=== PATIENT | male | born 1945 | race Caucasian/White ===

== ENCOUNTER 2018-10-01 15:53 | Observation (INO) | payer BC, MEDICAID ==
--- NOTE | 2018-10-01 16:11 | Emergency Department Record ---
History of Present Illness - General Chief complaint: Lower Extremity Pain Stated complaint: L LEG SORE BY ANKLE FROM FALL Time Seen by Provider: 10/01/18 16:05 Source: Patient Mode of Arrival: Ambulatory Limitations: No limitations - History of Present Illness Initial comments: The patient is here due to injuring his L lower leg during a fall 2 weeks ago. Today he noticed he had what appears to be an infection over the area on his L lower leg. The patient denies any fever, chills, or vomiting. He is able to walk with minimal difficulty. MD Complaint: Extremity pain Onset/Timin -: Week(s) Location: Left, Lower Leg History of Same: No Radiation: Proximal, Distal Severity scale (1-10): 6 Quality: Aching Consistency: Constant Improves with: Nothing Worsens with: Nothing Associated Symptoms: Denies other symptoms - Related Data Allergies Allergy/AdvReac Type Severity Reaction Status Date / Time Penicillins Allergy SWELLING Verified 10/01/18 16:03 (GENERAL) Travel Screening - Travel/Exposure Within Last 30 Days Have you traveled within the last 30 days?: No Review of Systems Constitutional: Denies: Chills, Fever Eyes: Denies: Eye discharge ENT: Denies: Congestion Respiratory: Denies: Cough Cardiovascular: Denies: Arrhythmia, Chest pain Endocrine: Denies: Fatigue Gastrointestinal: Denies: Abdominal pain Genitourinary: Denies: Dysuria Musculoskeletal: Denies: Back pain Skin: Denies: Bruising Neurological: Denies: Abnormal gait, Confusion Past Medical History - SOCIAL HISTORY Smoking Status: Never smoker Alcohol Use: None Drug Use: None - RESPIRATORY Hx Respiratory Disorders: No - CARDIOVASCULAR Hx Cardio Disorders: Yes Hx Hypertension: Yes - NEURO Hx Neuro Disorders: Yes Comment:: parkinsons - GI Hx GI Disorders: No - Hx Genitourinary Disorders: No - ENDOCRINE Hx Endocrine Disorders: No - MUSCULOSKELETAL Hx Musculoskeletal Disorders: No - PSYCH Hx Psych Problems: Yes Hx Anxiety: Yes Hx Depression: Yes - HEMATOLOGY/ONCOLOGY Hx Hematology/Oncology Disorders: No Family Medical History Any Significant Family History?: No Physical Exam - General General Appearance: Alert, Oriented x3, Cooperative, No acute distress - Head Head exam: Atraumatic, Normocephalic - Eye Eye exam: Normal appearance, PERRL - ENT Throat exam: Normal inspection. negative: Tonsillar erythema, Tonsillar exudate - Neck Neck exam: Normal inspection, Full ROM. negative: Tenderness - Respiratory Respiratory exam: Normal lung sounds bilaterally. negative: Respiratory distress - Cardiovascular Cardiovascular Exam: Regular rate, Normal rhythm, Normal heart sounds - GI/Abdominal GI/Abdominal exam: Soft, Normal bowel sounds. negative: Tenderness - Extremities Extremities exam: Tenderness. negative: Normal inspection (There is an 8x8 cm area of erythema and warmth and tenderness to the anterior L lower leg above the ankle. There is mild lympangitis streaking proximally from the area.), Full ROM Image of Full Body: 1 - Area of erythema and warmth and tenderness. - Back Back exam: Reports: Normal inspection - Neurological Neurological exam: Alert, Normal gait. negative: Abnormal gait, Motor sensory deficit - Skin Skin exam: Rash Course Vital Signs 10/01/18 15:57 Temperature 97.3 F L Pulse Rate 108 H Respiratory 20 Rate Blood Pressure 180/77 Pulse Ox 97 - Reevaluation(s) Reevaluation #1: Procedure note: the L lower leg wound was cleansed with betadine and opened up with a # 11 blade. A very minimal amount of purulence was expressed and cultured. 10/01/18 17:05 Reevaluation #2: I did discuss the issues with the patient and did recommend admission due to the leg infection and the patient agreed. I then did discuss the case with Joyce (EMERGENCY DEPARTMENT DIRECTOR) and she does accept the admission for Dr. Roy. 10/01/18 17:06 Medical Decision Making - Data Complexity MDM Data: Labs Ordered and/or Reviewed, X-Ray Ordered and/or Reviewed - Lab Data Result diagrams: 10/01/18 16:20 10/01/18 16:20 - Radiology Data Radiology results: Report reviewed (L lower leg: Neg for osteo or air. Soft tissue swelling consistent with cellulitis.) Disposition Disposition: Admit Clinical Impression: Cellulitis Qualifiers: Site of cellulitis: unspecified site Qualified Code(s): L03.90 - Cellulitis, unspecified Disposition: Still a Patient at [facility] Decision to Admit: Admit from ER Decision to Admit Date: 10/01/18 Decision to Admit Time: 17:07 Accepting Physician: Kirill Time Discussed w/Accepting Physician: 17:07 Condition: (2) Stable Forms: Patient Portal Access Time of Disposition: 17:07 Quality - Quality Measures Quality Measures: N/A - Blood Pressure Screening View Details: Yes Does Patient Have Any of the Following: Active Dx of HTN Blood Pressure Classification: Hypertensive Reading Systolic Measurement: 180 Diastolic Measurement: 77 Screening for High Blood Pressure: Patient Exclusion, Hx of HTN [[id number]]
[2018-10-01] MEDS ORDERED: CLINDAMYCIN 600MG/50ML PREMIX 600 MG/50 ML BAG IVPB ONE (16:15)
[2018-10-01 16:26] LABS: HEMOGLOBIN 8.9 gm/dl (14.0-18.0); MEAN CELL VOLUME 107.3 fl (81-97); MEAN CORPUSCULAR HGB CONC 31.8 g/dl (32-36); MEAN PLATELET VOLUME 12.7 fl (7.4-10.4); PLATELET COUNT 126 K/uL (130-400); RED BLOOD COUNT 2.61 M/uL (4.40-5.70); RED CELL DISTRIBUTION WIDTH 15.4 % (11.5-14.5); WHITE BLOOD COUNT W/O DIFF 6.4 K/uL (4.2-12.2)
[2018-10-01 16:36] LABS: HYPOCHROMIA 1+; PLATELET ESTIMATE NORMAL (NORMAL)
[2018-10-01 16:40] LABS: BLOOD UREA NITROGEN 27 mg/dL (8-23); CREATININE 0.8 mg/dL (0.7-1.2); EST GLOMERULAR FILTRATION RATE > 60 mL/min; TOTAL PROTEIN 7.8 g/dL (6.6-8.7)
[2018-10-01 16:42] LABS: GLUCOSE,RANDOM 119 mg/dL (74-109)
[2018-10-01 16:45] LABS: ALBUMIN 3.9 g/dL (4.0-5.0); ALKALINE PHOSPHATASE 68 U/L (55-149); ALT/SGPT 10 U/L (<41); AST/SGOT 10 U/L (10.0-50.0); C-REACTIVE PROTEIN 5.41 mg/dL (<0.5)
[2018-10-01] MEDS ORDERED: ACETAMINOPHEN 325 MG TAB PO PRN (18:44)
[2018-10-01] MEDS: CLINDAMYCIN 600MG/50ML PREMIX 600 MG/50 ML BAG IVPB SCH (20:05)
[2018-10-01] MEDS: CARBIDOPA/LEVODOPA 25MG/100MG TABLET PO SCH (21:57)
[2018-10-02] MEDS: CLINDAMYCIN 600MG/50ML PREMIX 600 MG/50 ML BAG IVPB SCH ×4 (03:01→18:22)
[2018-10-02 06:49] LABS: HEMATOCRIT 25.9 % (42.0-52.0); MEAN CELL VOLUME 108.4 fl (81-97); MEAN CORPUSCULAR HGB CONC 30.9 g/dl (32-36); MEAN PLATELET VOLUME 12.3 fl (7.4-10.4); PLATELET COUNT 99 K/uL (130-400); RED BLOOD COUNT 2.39 M/uL (4.40-5.70); RED CELL DISTRIBUTION WIDTH 15.4 % (11.5-14.5); WHITE BLOOD COUNT W/O DIFF 3.5 K/uL (4.2-12.2)
[2018-10-02 06:58] LABS: MEAN CORPUSCULAR HEMOGLOBIN 33.4 pg (27-33)
[2018-10-02 07:02] LABS: ALBUMIN 3.4 g/dL (4.0-5.0); ALKALINE PHOSPHATASE 55 U/L (55-149); ALT/SGPT < 5 U/L (<41); AST/SGOT 9 U/L (10.0-50.0); BLOOD UREA NITROGEN 19 mg/dL (8-23); CREATININE 0.6 mg/dL (0.7-1.2); EST GLOMERULAR FILTRATION RATE > 60 mL/min; GLUCOSE,RANDOM 92 mg/dL (74-109); TOTAL PROTEIN 6.8 g/dL (6.6-8.7)
[2018-10-02 07:36] LABS: ANISOCYTOSIS 1+; PLATELET ESTIMATE NORMAL (NORMAL)
[2018-10-02] MEDS: CITALOPRAM 20 MG TABLET PO SCH (09:28)
[2018-10-02] MEDS: CARBIDOPA/LEVODOPA 25MG/100MG TABLET PO SCH ×3 (09:28→21:56)
--- NOTE | 2018-10-02 09:29 | History & Physical ---
History of Present Illness - Date of Service Date of Service for History & Physical: 10/02/18 - History of Present Illness Admitting Diagnosis: 1. Left Lower Leg Cellulitis. History of Present Illness: 73 year old male patient presented to ED for worsening of an injury on his left gil. Patient states he slipped on the ice 4 days prior, and noted worsening redness and swelling of the area. Patient denied any fever, chills, vomiting, or shortness of breath. Patient denied noting any drainage from the area, denied any other injuries from the fall. Area on left lower leg opened in ED, minimal purulent drainage noted from the wound. Culture obtained from drainage. Patient is a poor historian but reports his past medical history to include Parkinson's, depression, and anemia. PCP: Ramos ED Course: VS: Temp 97.3F, HR 108, RR 20, BP 180/77, Pulse ox 97% Cultured wound on LLE Clinadmycin 600mg IVP q8h X-ray LLE: normal bone mineralization, no acute fracture or dislocation, mild soft tissue swelling of distal leg consistent with cellulitis WBC 6.4 with 15 bands, CRP 5 10/02/18: Patient A&O x 4, resting comfortably in bed. Patient has remained afebrile, no change in WBC since yesterday. Continued erythema with streaking up left leg noted around wound, no drainage, improvement in swelling at this time. Will continue with Clindamycin 600mg q8h at this time, pending wound culture results. Travel Screening - Travel/Exposure Within Last 30 Days Have you traveled within the last 30 days?: No - Travel/Exposure Within Last Year Have you traveled outside the [place] in the last year?: No - Additonal Travel Details Have you been exposed to anyone with a communicable illness?: No - Travel Symptoms Symptom Screening: None Review of Systems Reviewed: No additional complaints except as noted below Constitutional: Denies: Chills, Fever Eyes: Denies: Eye discharge ENT: Denies: Congestion Respiratory: Denies: Cough Cardiovascular: Denies: Arrhythmia, Chest pain Endocrine: Denies: Fatigue Gastrointestinal: Denies: Abdominal pain Genitourinary: Denies: Dysuria Musculoskeletal: Denies: Back pain Skin: Reports: Change in color (wound, redness, and swelling of LLE). Denies: Bruising Neurological: Denies: Abnormal gait, Confusion Past Medical History - SOCIAL HISTORY Smoking Status: Never smoker Alcohol Use: None Drug Use: None - RESPIRATORY Hx Respiratory Disorders: No - CARDIOVASCULAR Hx Cardio Disorders: Yes Hx Hypertension: Yes (STATES WAS TAKEN OFF BP MED BY PCP SOME TIME AGO) - NEURO Hx Neuro Disorders: Yes Hx Parkinson's Disease: Yes (TREMORS, DIFFICULTY READING) - GI Hx GI Disorders: No - Hx Genitourinary Disorders: No - ENDOCRINE Hx Endocrine Disorders: No Hx Diabetes: No Hx Thyroid Disease: No - MUSCULOSKELETAL Hx Musculoskeletal Disorders: No - PSYCH Hx Psych Problems: Yes Hx Anxiety: Yes Hx Depression: Yes - HEMATOLOGY/ONCOLOGY Hx Hematology/Oncology Disorders: No Family Medical History Any Significant Family History?: No H&P Meds/Allergies - Allergies Allergies: Allergies Allergy/AdvReac Type Severity Reaction Status Date / Time Penicillins Allergy SWELLING Verified 10/01/18 16:03 (GENERAL) - Home Medications Home Medications Medication Instructions Recorded Confirmed Last Taken Carbidopa/Levodopa [Sinemet 25-100 1 each PO TID 10/01/18 10/01/18 09/30/18 21: 00 mg Tablet] 25-100 mg Citalopram Hydrobromide [Celexa] 20 mg PO DAILY 10/01/18 10/01/18 09/30/18 09:00 20 mg - Active Medications Active Medications: Current Medications Acetaminophen (Tylenol 325mg) 650 mg PO Q6H PRN PRN Reason: PAIN - MILD(1-4)/FEVER Carbidopa/Levodopa (Sinemet) 1 each PO TID [facility] Last Admin: 10/01/18 21:57 Dose: 1 each Citalopram Hydrobromide (Celexa) 20 mg PO DAILY [facility] Clindamycin Phosphate (Cleocin 600 [id number]) 600 mg in 50 mls @ 100 mls/ hr IVPB Q8H [facility] Last Infusion: 10/02/18 03:35 Dose: Infused Physical Exam - Vital Signs Vital Signs: Vital Signs - Last 24 Hrs Temp Pulse Pulse Resp BP BP Pulse Ox 10/02/18 08:32 84 20 10/01/18 22:00 97.2 F L 88 16 98/62 97 10/01/18 18:40 98.0 F 91 H 18 136/76 93 L 10/01/18 18:29 97 H 20 128/72 97 10/01/18 15:57 97.3 F L 108 H 20 180/77 97 - General General Appearance: Alert, Oriented x3, Cooperative, No acute distress Limitations: No limitations - Head Head exam: Atraumatic, Normocephalic - Eye Eye exam: Normal appearance, PERRL - ENT ENT exam: Mucous membranes moist Ear exam: Normal external inspection Throat exam: negative: Tonsillar erythema, Tonsillar exudate - Neck Neck exam: Normal inspection, Full ROM. negative: Tenderness - Respiratory Respiratory exam: Normal lung sounds bilaterally. negative: Respiratory distress - Cardiovascular Cardiovascular Exam: Regular rate, Normal rhythm, Normal heart sounds Peripheral Pulses: 2+: Radial (R), Radial (L), Dorsalis Pedis (R), Dorsalis Pedis (L) - GI/Abdominal GI/Abdominal exam: Soft, Normal bowel sounds. negative: Tenderness - Extremities Extremities exam: Tenderness. negative: Normal inspection (There is an 8x8 cm area of erythema, warmth and tenderness to the anterior L lower leg above the ankle. There is mild lympangitis streaking proximally from the area.), Full ROM - Back Back exam: Reports: Normal inspection - Neurological Neurological exam: Alert, Normal gait, Oriented X3. negative: Abnormal gait, Motor sensory deficit - Psychiatric Psychiatric exam: Flat affect, Normal mood - Skin Skin exam: Normal color Results - Labs Result Diagrams: 10/02/18 05:45 10/02/18 05:45 Labs Last 24 Hours: Laboratory Results - last 24 hr 10/01/18 10/01/18 10/02/18 16:20 16:20 05:45 WBC 6.4 3.5 L RBC 2.61 L 2.39 L Hgb 8.9 L 8.0 L Hct 28.0 L 25.9 L MCV 107.3 H 108.4 H MCH 34.0 H 33.4 H MCHC 31.8 L 30.9 L RDW 15.4 H 15.4 H Plt Count 126 L 99 L MPV 12.7 H 12.3 H Neutrophils % 46.0 L 4.0 L Band Neutrophils % 15.0 H 2.0 Eosinophils % Not Reportable Not Reportable Basophils % Not Reportable Not Reportable Lymphocytes 22.0 60.0 H Monocytes 14.0 H 34.0 H Metamyelocytes 3.0 Platelet Estimate Normal Normal Hypochromasia 1+ Anisocytosis 1+ Macrocytosis 1+ Sodium 136 Potassium 4.0 Chloride 96 L Carbon Dioxide 23.0 Anion Gap 17.0 H BUN 27 H Creatinine 0.8 Estimated GFR > 60 Random Glucose 119 H Calcium 8.8 Total Bilirubin 0.40 AST 10 ALT 10 Alkaline Phosphatase 68 C-Reactive Protein 5.41 H Total Protein 7.8 Albumin 3.9 L Globulin 3.9 Albumin/Globulin Ratio 1.0 L 10/02/18 05:45 WBC RBC Hgb Hct MCV MCH MCHC RDW Plt Count MPV Neutrophils % Band Neutrophils % Eosinophils % Basophils % Lymphocytes Monocytes Metamyelocytes Platelet Estimate Hypochromasia Anisocytosis Macrocytosis Sodium 138 Potassium 3.6 Chloride 101 Carbon Dioxide 24.0 Anion Gap 13.0 BUN 19 Creatinine 0.6 L Estimated GFR > 60 Random Glucose 92 Calcium 8.1 L Total Bilirubin 0.40 AST 9 L ALT < 5 Alkaline Phosphatase 55 C-Reactive Protein Total Protein 6.8 Albumin 3.4 L Globulin 3.4 Albumin/Globulin Ratio 1.0 L VTE H&P Assessment - Risk for VTE Risk for VTE: Yes Risk Level: Moderate Risk Assessment Date: 10/02/18 Risk Assessment Time: 11:12 VTE Orders Placed or Will Be Placed: No VTE Reason for No Prophylaxis: Contraindicated (decreased platelets) Plan - Inpatient Certification Inpatient Certification: Admit to inpatient care: Based on my medical assessment, after consideration of patient's risk factors (age, co-morbidities and patient presenting symptoms and acuity), I expect that this patient will remain in the hospital greater than or equal to two midnights and that the services needed warrant inpatient care because: Patient Risk Factors: [age, hospitalization, cellulitis, anemia] Estimated length of stay: The patient may reasonably be expected to be discharged or transferred to a hospital within 96 hours after admission to [facility]. Services needed: [IV antibiotics, serial lab monitoring] Post hospital care (if known): [] I certify that my determination is in accordance with my understanding of Medicare requirements for reasonable and necessary inpatient services. 10/02/18 11:12 - Detailed Diagnosis and Plan (1) Cellulitis Current Visit: Yes Status: Acute Qualifiers: Site of cellulitis: unspecified site Qualified Code(s): L03.90 - Cellulitis , unspecified Base Code: L03.90 - CELLULITIS, UNSPECIFIED Comment: 10/02/18: - 8x8cm area of erythema with proximal streaking up LLE noted - Wound opened in ED with minimal purulent drainage, wound culture obtained - WBC 6.4, afebrile - X-ray LLE: negative for acute fracture, normal bone mineralization, soft tissue swelling noted suggestive of cellulitis - Clindamycin 600mg IVPB q8h (2) Anemia Current Visit: Yes Status: Acute Base Code: D64.9 - ANEMIA, UNSPECIFIED Comment: 10/02/18: - CBC grossly abnormal in ER, patient reports history of anemia with no treatment, poor historian - Hgb 8.9, MCV 107.3, Plt 126 - Repeat CBC today indicates Hgb 8.0, MCV 108.4, Plt 99 - Will check B12, folate, and TSH levels to look for additional cause of macrocytic anemia - Recheck CBC tomorrow (3) DVT prophylaxis Current Visit: Yes Status: Acute Base Code: [id number] - Comment: 10/02/18: - Moderate risk due to age, hospitalization, and illness - Lovenox contraindicated at this time due to thrombocytopenia - Encouraged patient to ambulate frequently within the room (4) DNR (do not resuscitate) Current Visit: Yes Status: Acute Base Code: Z66 - DO NOT RESUSCITATE Comment: 10/02/18: - Patient is a DNR
[2018-10-03] MEDS: CLINDAMYCIN 600MG/50ML PREMIX 600 MG/50 ML BAG IVPB SCH ×3 (02:51→18:27)
[2018-10-03 07:02] LABS: HEMATOCRIT 27.2 % (42.0-52.0); HEMOGLOBIN 8.4 gm/dl (14.0-18.0); MEAN CELL VOLUME 108.8 fl (81-97); MEAN CORPUSCULAR HEMOGLOBIN 33.6 pg (27-33); MEAN CORPUSCULAR HGB CONC 30.9 g/dl (32-36); MEAN PLATELET VOLUME 12.3 fl (7.4-10.4); PLATELET COUNT 106 K/uL (130-400); RED CELL DISTRIBUTION WIDTH 15.1 % (11.5-14.5)
--- NOTE | 2018-10-03 07:17 | RADIOLOGY REPORT ---
EXAM: LEFT LOWER LEG HISTORY: PAIN AND REDNESS TO DISTAL ANTERIOR ASPECT OF THE LEFT LOWER LEG WITH OPEN WOUND SINCE FALL TWO WEEKS AGO. TECHNIQUE: AP and lateral views of the left lower leg were obtained. Comparison: None. Encounter: Initial. FINDINGS: There is normal bone mineralization. No acute fracture nor dislocation is seen. There are mild osteoarthritic changes of the visualized portions of the knee. The ankle mortise joint appears intact. There is diffuse arterial calcification. There is soft tissue swelling throughout the mid and distal portions of the lower leg most pronounced anteriorly and distally. No soft tissue emphysema nor foreign body. No focal osteopenia or periosteal reaction. There is a small plantar calcaneal spur. IMPRESSION: 1. NO ACUTE BONE NOR JOINT ABNORMALITY. 2. SOFT TISSUE SWELLING IN THE MID TO DISTAL LOWER LEG CONSISTENT WITH CELLULITIS. 3. MILD ARTHRITIC CHANGES OF THE KNEE. JOB NUMBER: [id number] [facility]
[2018-10-03 07:18] LABS: BLOOD UREA NITROGEN 17 mg/dL (8-23); CREATININE 0.5 mg/dL (0.7-1.2); EST GLOMERULAR FILTRATION RATE > 60 mL/min; GLUCOSE,RANDOM 101 mg/dL (74-109)
[2018-10-03 07:30] LABS: ANISOCYTOSIS 1+; PLATELET ESTIMATE NORMAL (NORMAL)
[2018-10-03 07:44] LABS: THYROID STIMULATING HORMONE 2.01 uIU/mL (0.270-4.20)
[2018-10-03] MEDS: CARBIDOPA/LEVODOPA 25MG/100MG TABLET PO SCH ×3 (09:56→21:49)
[2018-10-03] MEDS: CITALOPRAM 20 MG TABLET PO SCH (09:56)
--- NOTE | 2018-10-03 10:23 | Physician Progress Note ---
Subjective - Date Date of Physician Progress Note: 10/03/18 - Subjective Location: Left, Lower extremity Radiation: Non-Radiating Objective - Vital Signs Vital Signs: Vital Signs - Last 24 Hrs Temp Pulse Resp BP Pulse Ox 10/03/18 08:08 76 20 10/03/18 08:00 97.0 F L 72 14 113/63 96 10/02/18 21:00 78 17 10/02/18 20:00 97.4 F L 78 17 110/82 99 10/02/18 16:00 98.4 F 76 16 102/54 95 10/02/18 12:00 98.4 F 78 16 98/52 - General General Appearance: Alert, Oriented x3, Cooperative, No acute distress Limitations: No limitations - Head Head exam: Atraumatic, Normocephalic - Eye Eye exam: Normal appearance, PERRL - ENT ENT exam: Mucous membranes moist Ear exam: Normal external inspection Throat exam: negative: Tonsillar erythema, Tonsillar exudate - Neck Neck exam: Normal inspection, Full ROM. negative: Tenderness - Respiratory Respiratory exam: Normal lung sounds bilaterally. negative: Respiratory distress - Cardiovascular Cardiovascular Exam: Regular rate, Normal rhythm, Normal heart sounds Peripheral Pulses: 2+: Radial (R), Radial (L), Dorsalis Pedis (R), Dorsalis Pedis (L) - GI/Abdominal GI/Abdominal exam: Soft, Normal bowel sounds. negative: Tenderness - Rectal Rectal exam: Deferred - exam: Deferred - Extremities Extremities exam: Tenderness. negative: Normal inspection (There is an 8x8 cm area of erythema, warmth and tenderness to the anterior L lower leg above the ankle. Improved lympangitis streaking proximally from the area.), Full ROM - Back Back exam: Reports: Normal inspection - Neurological Neurological exam: Alert, Normal gait, Oriented X3. negative: Abnormal gait, Motor sensory deficit - Psychiatric Psychiatric exam: Flat affect, Normal mood - Skin Skin exam: Normal color Assessment and Plan - Assessment and Plan (1) Cellulitis Current Visit: Yes Status: Acute Qualifiers: Site of cellulitis: unspecified site Qualified Code(s): L03.90 - Cellulitis , unspecified Base Code: L03.90 - CELLULITIS, UNSPECIFIED Comment: 10/03/18: - 8x8cm area of erythema with proximal streaking up LLE noted, improved from yesterday - Wound opened in ED with minimal purulent drainage, wound culture obtained. Continued minimal purulent drainage - WBC 3.0, has remained afebrile - X-ray LLE: negative for acute fracture, normal bone mineralization, soft tissue swelling noted suggestive of cellulitis - Clindamycin 600mg IVPB q8h - Mupirocin ointment to wound BID, with BID dressing changes - Preliminary wound culture indicates gram positive cocci in clusters (2) Anemia Current Visit: Yes Status: Acute Base Code: D64.9 - ANEMIA, UNSPECIFIED Comment: 10/03/18: - CBC grossly abnormal since admission, patient reports history of anemia with no treatment, poor historian - Hgb 8.9, MCV 107.3, Plt 126 on admission - Repeat CBC today indicates Hgb 8.4, MCV 108.8, Plt 126 - B12, folate, and TSH levels all within normal - Likely chronic macrocytic anemia, advised patient to follow-up with PCP for careful monitoring. (3) DVT prophylaxis Current Visit: Yes Status: Acute Base Code: [id number] - Comment: 10/03/18: - Moderate risk due to age, hospitalization, and illness - Lovenox contraindicated at this time due to thrombocytopenia - Encouraged patient to ambulate frequently within the room (4) DNR (do not resuscitate) Current Visit: Yes Status: Acute Base Code: Z66 - DO NOT RESUSCITATE Comment: 10/03/18: - Patient is a DNR Results - Labs Result Diagrams: 10/03/18 06:30 10/03/18 06:30 Labs Last 24 Hours: Laboratory Results - last 24 hr 10/03/18 10/03/18 10/03/18 06:30 06:30 06:30 WBC 3.0 L RBC 2.50 L Hgb 8.4 L Hct 27.2 L MCV 108.8 H MCH 33.6 H MCHC 30.9 L RDW 15.1 H Plt Count 106 L MPV 12.3 H Neutrophils % 18.0 L Eosinophils % Not Reportable Basophils % Not Reportable Lymphocytes 40.0 Monocytes 42.0 H Platelet Estimate Normal Anisocytosis 1+ Macrocytosis 1+ Sodium 136 Potassium 3.9 Chloride 101 Carbon Dioxide 24.0 Anion Gap 11.0 BUN 17 Creatinine 0.5 L Estimated GFR > 60 Random Glucose 101 Calcium 8.3 L Vitamin B12 384.2 Folate 6.01 TSH 2.01 DVT/PE Assessment - Risk for VTE Risk for VTE: No Risk Level: Moderate Risk Assessment Date: 10/02/18 Risk Assessment Time: 11:12 VTE Orders Placed or Will Be Placed: No VTE Reason for No Prophylaxis: Contraindicated (decreased platelets) - Active Medicaitons Current Medications: Current Medications Acetaminophen (Tylenol 325mg) 650 mg PO Q6H PRN PRN Reason: PAIN - MILD(1-4)/FEVER Carbidopa/Levodopa (Sinemet) 1 each PO TID [facility] Last Admin: 10/03/18 09:56 Dose: 1 each Citalopram Hydrobromide (Celexa) 20 mg PO DAILY [facility] [place] Last Admin: 10/03/18 09:56 Dose: 20 mg Clindamycin Phosphate (Cleocin 600 [id number]) 600 mg in 50 mls @ 100 mls/ hr IVPB Q8H [facility] [place] Last Admin: 10/03/18 09:56 Dose: 100 mls/hr Mupirocin (Bactroban) 22 gm TOP BID [facility] [place] Propranolol HCl (Inderal) 20 mg PO QHS [facility] AMI Plan - Labs Result Diagrams: 10/03/18 06:30 10/03/18 06:30
[2018-10-03] MEDS: MUPIROCIN OINT 22 GM TUBE TOP SCH ×3 (12:01→21:53)
[2018-10-03] MEDS ORDERED: PROPRANOLOL HCL 10 MG TABLET PO SCH (22:00)
[2018-10-04] MEDS: CLINDAMYCIN 600MG/50ML PREMIX 600 MG/50 ML BAG IVPB SCH (02:27)
[2018-10-04 06:40] LABS: HEMATOCRIT 26.3 % (42.0-52.0); HEMOGLOBIN 8.2 gm/dl (14.0-18.0); MEAN CELL VOLUME 108.7 fl (81-97); MEAN CORPUSCULAR HGB CONC 31.2 g/dl (32-36); MEAN PLATELET VOLUME 11.6 fl (7.4-10.4); PLATELET COUNT 107 K/uL (130-400); RED BLOOD COUNT 2.42 M/uL (4.40-5.70); RED CELL DISTRIBUTION WIDTH 15.2 % (11.5-14.5); WHITE BLOOD COUNT W/O DIFF 3.1 K/uL (4.2-12.2)
[2018-10-04 06:47] LABS: MEAN CORPUSCULAR HEMOGLOBIN 33.8 pg (27-33)
[2018-10-04 06:55] LABS: BLOOD UREA NITROGEN 14 mg/dL (8-23); CREATININE 0.5 mg/dL (0.7-1.2); EST GLOMERULAR FILTRATION RATE > 60 mL/min; GLUCOSE,RANDOM 94 mg/dL (74-109)
[2018-10-04 07:06] LABS: ANISOCYTOSIS 1+; PLATELET ESTIMATE DECREASED (NORMAL)
--- NOTE | 2018-10-04 10:12 | Discharge Summary ---
Providers Discharge Summary Date: 10/04/18 Date of admission: 10/01/18 18:28 Attending physician: ROXANN LAMAS Primary care physician: DOLLY COLLINS M.D. Physical Exam - Vital Signs Vital Signs: Vital Signs - Last 24 Hrs Temp Pulse Resp BP Pulse Ox 10/04/18 09:00 75 16 10/04/18 08:00 98.0 F 75 16 113/69 96 10/03/18 20:03 76 20 10/03/18 16:00 97.8 F 76 20 98/76 95 10/03/18 12:00 97.7 F 74 14 96/57 98 - General General Appearance: Alert, Oriented x3, Cooperative, No acute distress Limitations: No limitations - Head Head exam: Atraumatic, Normocephalic - Eye Eye exam: Normal appearance, PERRL - ENT ENT exam: Mucous membranes moist Ear exam: Normal external inspection Throat exam: negative: Tonsillar erythema, Tonsillar exudate - Neck Neck exam: Normal inspection, Full ROM. negative: Tenderness - Respiratory Respiratory exam: Normal lung sounds bilaterally. negative: Respiratory distress - Cardiovascular Cardiovascular Exam: Regular rate, Normal rhythm, Normal heart sounds Peripheral Pulses: 2+: Radial (R), Radial (L), Dorsalis Pedis (R), Dorsalis Pedis (L) - GI/Abdominal GI/Abdominal exam: Soft, Normal bowel sounds. negative: Tenderness - Rectal Rectal exam: Deferred - exam: Deferred - Extremities Extremities exam: Tenderness. negative: Normal inspection (There is an 8x8 cm area of erythema, warmth and tenderness to the anterior L lower leg above the ankle. Improved lympangitis streaking proximally from the area.), Full ROM - Back Back exam: Reports: Normal inspection - Neurological Neurological exam: Alert, Normal gait, Oriented X3. negative: Abnormal gait, Motor sensory deficit - Psychiatric Psychiatric exam: Flat affect, Normal mood - Skin Skin exam: Normal color Type of lesion: Other Distribution of rash: LLE (cellulitis) Description of rash: Tenderness Hospitalization - Hospitalization Admission Diagnosis: 1. Left Lower Leg Cellulitis. - Problem List/Discharge Diagnosis (1) Anemia Status: Acute Base Code: D64.9 - ANEMIA, UNSPECIFIED Comment: 10/04/18: - CBC grossly abnormal since admission, patient reports history of anemia with no treatment, poor historian - B12, folate, and TSH levels all within normal - Likely chronic macrocytic anemia, advised patient to follow-up with PCP for careful monitoring. (2) Cellulitis Status: Acute Discharge Diagnosis: Site of cellulitis: unspecified site Qualified Code(s): L03.90 - Cellulitis , unspecified Base Code: L03.90 - CELLULITIS, UNSPECIFIED Comment: 10/04/18: - Decrease in erythema, no streaking noted to LLE - Wound opened in ED with minimal purulent drainage, wound culture obtained. - X-ray LLE: negative for acute fracture, normal bone mineralization, soft tissue swelling noted suggestive of cellulitis - Clindamycin changed from IV to 300mg PO q. 6 hours x 30 more doses - Mupirocin ointment to wound BID, with BID dressing changes - Preliminary wound culture indicates gram positive cocci in clusters (3) DNR (do not resuscitate) Status: Acute Base Code: Z66 - DO NOT RESUSCITATE Comment: 10/04/18: - Patient is a DNR (4) DVT prophylaxis Status: Acute Base Code: [id number] - Comment: 10/04/18: - Moderate risk due to age, hospitalization, and illness - Lovenox contraindicated at this time due to thrombocytopenia - Encouraged patient to ambulate frequently - Hospitalization Course Disposition: Home, Self-Care Hospital Course: 73 year old male patient presented to ED for worsening of an injury on his left gil. Patient states he slipped on the ice 4 days prior, and noted worsening redness and swelling of the area. Patient denied any fever, chills, vomiting, or shortness of breath. Patient denied noting any drainage from the area, denied any other injuries from the fall. Area on left lower leg opened in ED, minimal purulent drainage noted from the wound. Culture obtained from drainage. Patient is a poor historian but reports his past medical history to include Parkinson's, depression, and anemia. PCP: Ramos ED Course: VS: Temp 97.3F, HR 108, RR 20, BP 180/77, Pulse ox 97% Cultured wound on LLE Clinadmycin 600mg IVP q8h X-ray LLE: normal bone mineralization, no acute fracture or dislocation, mild soft tissue swelling of distal leg consistent with cellulitis WBC 6.4 with 15 bands, CRP 5 10/02/18: Patient A&O x 4, resting comfortably in bed. Patient has remained afebrile, no change in WBC since yesterday. Continued erythema with streaking up left leg noted around wound, no drainage, improvement in swelling at this time. Will continue with Clindamycin 600mg q8h at this time, pending wound culture results. 10/04/18: Pt received 3 days worth of IV antibiotic therapy which showed a reduction in erythema and streaking to LLE. Reports pain that has decreased in intensity and is tolerable. Denies fever, chills or body aches. Reports that he is able to change dressings to LLE and is ready for discharge. Procedures: Imaging and X-Rays 10/01/18 16:07 LOWER LEG, LEFT [RAD] Stat Abnormal Labs: Abnormal Lab Results 10/01/18 10/01/18 10/02/18 Range/Units 16:20 16:20 05:45 WBC 3.5 L (4.2-12.2) K/uL RBC 2.61 L 2.39 L (4.40-5.70) M/uL Hgb 8.9 L 8.0 L (14.0-18.0) gm/dl Hct 28.0 L 25.9 L (42.0-52.0) % MCV 107.3 H 108.4 H (81-97) fl MCH 34.0 H 33.4 H (27-33) pg MCHC 31.8 L 30.9 L (32-36) g/dl RDW 15.4 H 15.4 H (11.5-14.5) % Plt Count 126 L 99 L (130-400) K/uL MPV 12.7 H 12.3 H (7.4-10.4) fl Neutrophils % 46.0 L 4.0 L (47-80) % Band Neutrophils % 15.0 H (0-5) % Lymphocytes 60.0 H (16-45) % Monocytes 14.0 H 34.0 H (0-9) % Chloride 96 L (98-107) mmol/L Anion Gap 17.0 H (7-16) BUN 27 H (8-23) mg/dL Creatinine (0.7-1.2) mg/dL Random Glucose 119 H (74-109) mg/dL Calcium (8.8-10.2) mg/dL AST (10.0-50.0) U/L C-Reactive Protein 5.41 H (<0.5) mg/dL Albumin 3.9 L (4.0-5.0) g/dL Albumin/Globulin Ratio 1.0 L (1.1-1.8) 10/02/18 10/03/18 10/03/18 Range/Units 05:45 06:30 06:30 WBC 3.0 L (4.2-12.2) K/uL RBC 2.50 L (4.40-5.70) M/uL Hgb 8.4 L (14.0-18.0) gm/dl Hct 27.2 L (42.0-52.0) % MCV 108.8 H (81-97) fl MCH 33.6 H (27-33) pg MCHC 30.9 L (32-36) g/dl RDW 15.1 H (11.5-14.5) % Plt Count 106 L (130-400) K/uL MPV 12.3 H (7.4-10.4) fl Neutrophils % 18.0 L (47-80) % Band Neutrophils % (0-5) % Lymphocytes (16-45) % Monocytes 42.0 H (0-9) % Chloride (98-107) mmol/L Anion Gap (7-16) BUN (8-23) mg/dL Creatinine 0.6 L 0.5 L (0.7-1.2) mg/dL Random Glucose (74-109) mg/dL Calcium 8.1 L 8.3 L (8.8-10.2) mg/dL AST 9 L (10.0-50.0) U/L C-Reactive Protein (<0.5) mg/dL Albumin 3.4 L (4.0-5.0) g/dL Albumin/Globulin Ratio 1.0 L (1.1-1.8) 10/04/18 10/04/18 Range/Units 06:20 06:20 WBC 3.1 L (4.2-12.2) K/uL RBC 2.42 L (4.40-5.70) M/uL Hgb 8.2 L (14.0-18.0) gm/dl Hct 26.3 L (42.0-52.0) % MCV 108.7 H (81-97) fl MCH 33.8 H (27-33) pg MCHC 31.2 L (32-36) g/dl RDW 15.2 H (11.5-14.5) % Plt Count 107 L (130-400) K/uL MPV 11.6 H (7.4-10.4) fl Neutrophils % 12.0 L (47-80) % Band Neutrophils % (0-5) % Lymphocytes (16-45) % Monocytes 44.0 H (0-9) % Chloride (98-107) mmol/L Anion Gap (7-16) BUN (8-23) mg/dL Creatinine 0.5 L (0.7-1.2) mg/dL Random Glucose (74-109) mg/dL Calcium 8.3 L (8.8-10.2) mg/dL AST (10.0-50.0) U/L C-Reactive Protein (<0.5) mg/dL Albumin (4.0-5.0) g/dL Albumin/Globulin Ratio (1.1-1.8) Condition at Discharge: (2) Stable Discharge Medications - Discharge Medications Prescriptions: Bifidobacterium Infantis [Align] 4 mg PO DAILY #9 capsule Clindamycin HCl [Cleocin HCl] 300 mg PO Q6H #60 cap Mupirocin [Bactroban] 1 applic TOP BID 10 Days ointment Home Medications: Ambulatory Orders Carbidopa/Levodopa [Sinemet 25-100 mg Tablet] 1 each PO TID 10/01/18 [Last Taken 09/30/18 21:00 25-100 mg] Citalopram Hydrobromide [Celexa] 20 mg PO DAILY 10/01/18 [Last Taken 09/30/18 09 :00 20 mg] Propranolol HCl 20 mg PO QHS 10/03/18 [Last Taken Unknown] Acetaminophen [Tylenol 325Mg] 650 mg PO Q6H PRN tablet 10/04/18 [Last Taken Unknown] Bifidobacterium Infantis [Align] 4 mg PO DAILY #9 capsule 10/04/18 [Last Taken Unknown] Carbidopa/Levodopa 25Mg/100Mg [Sinemet] 1 each PO TID tablet 10/04/18 [Last Taken Unknown] Citalopram Hydrobromide [Celexa] 20 mg PO DAILY tablet 10/04/18 [Last Taken Unknown] Clindamycin HCl [Cleocin HCl] 300 mg PO Q6H #60 cap 10/04/18 [Last Taken Unknown ] Mupirocin [Bactroban] 1 applic TOP BID 10 Days ointment 10/04/18 [Last Taken Unknown] Discharge Plan - Discharge Instructions Activity at Discharge: Increase Activity as Tolerated Diet at Discharge: Low Salt Diet Wound Primary Dressing Type: Non-Adherent Gauze Pad Dressing Change: Twice a day Additional Instructions: Follow up with your PCP within 1 week Return to ED if symptoms worsen such as a fever, chills, body aches, Apply thin layer of Mupirocin to affected area twice a day, keep wound clean and covered Quality Measures - Quality Measures Quality Measures: Advance Directives, Documentation of Current Medications in Medical Record, Elder Maltreatment Screen and Follow-Up Plan, Screening for High Blood Pressure and F/U Documented - Current Medications Quality Measure: Measure #130: Documentation of Current Medications Documentation of Current Medications: <Current Medications Documented/Reviewed> [G8472] - Blood Pressure Screening Quality Measure: Screening for High Blood Pressure and Follow-Up Documented Does Patient Have Any of the Following: No Blood Pressure Classification: Pre-Hypertensive BP Reading Systolic Measurement: 128 Diastolic Measurement: 72 Screening for High Blood Pressure: < Pre-Hypertensive BP, F/U Documented > [ G8950] Pre-Hypertensive Follow-up Interventions: Referral to alternative/primary care provider. - Advance Directives Quality Measure: Measure #47: Care Plan Advance Directives Established: No Advance Directives Information Provided To Patient: No Advance Directives on File: No Living Will: Yes Power of Ice Cream Van Vendor: Yes Power of Ice Cream Van Vendor Name: Ken Barajas Advance Care Planning: <Care Plan/Decision Maker Documented; Discussed & Documented> [[id number]] - Elder Abuse Suspicion Index Screening: Elder Abuse Suspicion Index Screening Rely on people for bathing, dressing, shopping, banking, etc: No Prevented from getting food, clothes, medication, etc: No Made to feel shamed or threatened by someone: No Forced to sign papers or use money against will: No Feel afraid, touched in ways not wanted or hurt physically: No Poor eye contact, withdrawn, malnourished, cuts or bruises: No Screening Result: Negative result EASI Reference Information: Shari DIGGS, Aurora Davila, Bart Rasmussen, Jose Alejandro Valencia.Development and validation of a tool to assist physicians identification of elder abuse: The Elder Abuse Suspicion Index (EASI ). Journal of Elder Abuse and Neglect, 2008; 20 (3): 276-300. - Elder Maltreatment Screen Quality Measures: Elder Maltreatment Screen and Follow-Up Plan Elder Maltreatment Screen: <Negative, No Follow-Up Plan Required> [G8734]
[2018-10-04] MEDS ORDERED: BIFIDOBACTERIUM INFANTIS 4 MG CAPSULE PO SCH (10:30)
[2018-10-04] MEDS ORDERED: CLINDAMYCIN 150 MG CAP PO SCH (10:30)
[2018-10-04] MEDS: MUPIROCIN OINT 22 GM TUBE TOP SCH (10:44)
[2018-10-04] MEDS: CITALOPRAM 20 MG TABLET PO SCH (10:47)
[2018-10-04] MEDS: CARBIDOPA/LEVODOPA 25MG/100MG TABLET PO SCH (10:47)
== END 2018-10-04 12:49 | disposition home or self-care (01) ==
LOC: ER 15:53 → INTOOBSV 18:28 → MEDSURG 18:28
PROVIDERS: ADMIT Internal Medicine; ATTEND Internal Medicine
DX: L03.116 Cellulitis of left lower limb (principal); I10 Essential (primary) hypertension; D64.9 Anemia, unspecified; G20 Parkinson's disease; Z66 Do not resuscitate; W19.XXXA Unspecified fall, initial encounter
CPT/HCPCS: 86140; 80048 ×2; 80053 ×2; 84443; 82607; 82746; 85027 ×4; 73590; G0378 ×4; 96365; 99217; 99220; 99225; 99285

== ENCOUNTER 2019-01-19 10:03 | Observation (INO) | payer BC, MEDICAID ==
[2019-01-19] MEDS ORDERED: 0.9 % SODIUM CHLORIDE 1,000 ML BAG IV ONE ×2 (10:36→18:45)
[2019-01-19 11:03] LABS: ABSOLUTE NEUTROPHIL COUNT 8.27; HEMATOCRIT 31.4 % (42.0-52.0); HEMOGLOBIN 9.8 gm/dl (14.0-18.0); MEAN CELL VOLUME 105.4 fl (81-97); MEAN CORPUSCULAR HGB CONC 31.2 g/dl (32-36); MEAN PLATELET VOLUME 12.8 fl (7.4-10.4); PLATELET COUNT 105 K/uL (130-400); RED BLOOD COUNT 2.98 M/uL (4.40-5.70); RED CELL DISTRIBUTION WIDTH 15.2 % (11.5-14.5)
[2019-01-19 11:09] LABS: MEAN CORPUSCULAR HEMOGLOBIN 32.8 pg (27-33)
[2019-01-19 11:11] LABS: WHITE BLOOD COUNT W/O DIFF 24.8 K/uL (4.2-12.2)
[2019-01-19 11:18] LABS: INFLUENZA A NEGATIVE (NEGATIVE); INFLUENZA B NEGATIVE (NEGATIVE)
[2019-01-19 11:28] LABS: BLOOD UREA NITROGEN 20 mg/dL (8-23); CREATININE 0.7 mg/dL (0.7-1.2); EST GLOMERULAR FILTRATION RATE > 60 mL/min
[2019-01-19 11:29] LABS: TOTAL PROTEIN 7.2 g/dL (6.6-8.7)
[2019-01-19 11:31] LABS: GLUCOSE,RANDOM 100 mg/dL (74-109)
[2019-01-19 11:33] LABS: ALT/SGPT < 5 U/L (<41); AST/SGOT 14 U/L (10.0-50.0)
[2019-01-19 11:34] LABS: ALB/GLOB RATIO 1.1 (1.1-1.8); ALBUMIN 3.7 g/dL (4.0-5.0); ALKALINE PHOSPHATASE 62 U/L (40-129); CREATINE PHOSPHOKINASE 45 U/L (39-308)
[2019-01-19] MEDS ORDERED: LEVOFLOXACIN/D5W 750 MG/150 ML BAG IVPB ONE (12:41)
[2019-01-19 12:44] LABS: URINE APPEARANCE CLEAR; URINE BILIRUBIN NEGATIVE (NEGATIVE); URINE BLOOD NEGATIVE (NEGATIVE); URINE COLOR YELLOW; URINE GLUCOSE (UA) NEGATIVE (NEGATIVE); URINE KETONE NEGATIVE (NEGATIVE); URINE LEUKOCYTE ESTERASE NEGATIVE (NEGATIVE); URINE NITRITE NEGATIVE (NEGATIVE); URINE PROTEIN TRACE (NEGATIVE)
[2019-01-19] MEDS ORDERED: ACETAMINOPHEN 500 MG TABLET PO ONE (12:56)
--- NOTE | 2019-01-19 13:11 | Emergency Department Record ---
History of Present Illness - General Chief complaint: Weakness Stated complaint: WEAKNESS/DIZZINESS Time Seen by Provider: 01/19/19 10:26 Source: Patient Mode of Arrival: Wheelchair Limitations: No limitations - History of Present Illness Initial comments: pt came in because he is increasingly weak and lightheaded over the last week. he has a cough. he denies pain MD Complaint: Generalized weakness Onset/Timin -: Week(s) Location: Generalized Improves with: None Worsens with: None Associated Symptoms: Denies other symptoms - [place] Coma Scale Eye Response: (4) Open spontaneously Motor Response: (6) Obeys commands Verbal Response: (5) Oriented [place] Total: 15 - Symptoms of Stroke Symptoms of stroke: Muscle Weakness, Unsteady When Walking - Related Data Previous Rx's Medication Instructions Recorded Acetaminophen [Tylenol 325Mg] 650 mg PO Q6H PRN tablet 10/04/18 Bifidobacterium Infantis [Align] 4 mg PO DAILY #9 capsule 10/04/18 Citalopram Hydrobromide [Celexa] 20 mg PO DAILY tablet 10/04/18 Allergies Allergy/AdvReac Type Severity Reaction Status Date / Time Penicillins Allergy SWELLING Verified 01/19/19 10:17 (GENERAL) Travel Screening - Travel/Exposure Within Last 30 Days Have you traveled within the last 30 days?: No Review of Systems Reviewed: No additional complaints except as noted below Constitutional: Reports: As per HPI, Fever, Weakness. Denies: Chills, Malaise, Night sweats, Weight change Eyes: Reports: As per HPI. Denies: Eye discharge, Eye pain, Photophobia, Vision change ENT: Reports: As per HPI. Denies: Congestion, Dental pain, Ear pain, Epistaxis, Hearing loss, Throat pain Respiratory: Reports: As per HPI, Cough. Denies: Dyspnea, Hemoptysis, Stridor, Wheezes Cardiovascular: Reports: As per HPI. Denies: Arrhythmia, Chest pain, Dyspnea on exertion, Edema, Murmurs, Orthopnea, Palpitations, Paroxysmal nocturnal dyspnea, Rheumatic Fever, Syncope Endocrine: Reports: As per HPI. Denies: Fatigue, Heat or cold intolerance, Polydipsia, Polyuria Gastrointestinal: Reports: As per HPI. Denies: Abdominal pain, Constipation, Diarrhea, Hematemesis, Hematochezia, Melena, Nausea, Vomiting Genitourinary: Reports: As per HPI. Denies: Dysuria, Frequency, Hematuria, Incontinence, Retention, Testicular pain, Testicular mass, Urgency Musculoskeletal: Reports: As per HPI. Denies: Arthralgia, Back pain, Gout, Joint swelling, Myalgia, Neck pain Skin: Reports: As per HPI. Denies: Bruising, Change in color, Change in hair/nails, Lesions, Pruritus, Rash Neurological: Reports: As per HPI, Abnormal gait, Tremors, Weakness. Denies: Confusion, Headache, Numbness, Paresthesias, Seizure, Tingling, Vertigo Psychiatric: Reports: As per HPI. Denies: Anxiety, Auditory hallucinations, Depression, Homicidal thoughts, Suicidal thoughts, Visual hallucinations Hematological/Lymphatic: Reports: As per HPI. Denies: Anemia, Blood Clots, Easy bleeding, Easy bruising, Swollen glands Past Medical History - SOCIAL HISTORY Smoking Status: Never smoker Alcohol Use: None Drug Use: None - RESPIRATORY Hx Respiratory Disorders: No - CARDIOVASCULAR Hx Cardio Disorders: No - NEURO Hx Neuro Disorders: Yes Hx Parkinson's Disease: Yes (TREMORS, DIFFICULTY READING) - GI Hx GI Disorders: No - Hx Genitourinary Disorders: No - ENDOCRINE Hx Endocrine Disorders: No Hx Diabetes: No Hx Thyroid Disease: No - MUSCULOSKELETAL Hx Musculoskeletal Disorders: No - PSYCH Hx Psych Problems: Yes Hx Anxiety: Yes Hx Depression: Yes - HEMATOLOGY/ONCOLOGY Hx Hematology/Oncology Disorders: No Family Medical History Any Significant Family History?: No Physical Exam - General General Appearance: Alert, Oriented x3, Cooperative, Mild distress - Head Head exam: Normal inspection - Eye Eye exam: Normal appearance, PERRL, EOMI Pupils: Normal accommodation - ENT ENT exam: Normal exam, Mucous membranes moist, Normal external ear exam, Normal orophraynx, TM's normal bilaterally Ear exam: Normal external inspection. negative: External canal tenderness Nasal Exam: Normal inspection. negative: Discharge, Sinus tenderness Mouth exam: Normal external inspection, Tongue normal Teeth exam: Normal inspection. negative: Dental caries Throat exam: Normal inspection. negative: Tonsillar erythema, Tonsillar exudate - Neck Neck exam: Normal inspection, Full ROM. negative: Tenderness - Respiratory Respiratory exam: Normal lung sounds bilaterally. negative: Respiratory distress - Cardiovascular Cardiovascular Exam: Regular rate, Normal rhythm, Normal heart sounds - GI/Abdominal GI/Abdominal exam: Soft, Normal bowel sounds. negative: Tenderness - Rectal Rectal exam: Deferred - exam: Deferred - Extremities Extremities exam: Normal inspection, Full ROM, Normal capillary refill. negative: Tenderness - Back Back exam: Reports: Normal inspection, Full ROM. Denies: Muscle spasm, Rash noted, Tenderness - Neurological Neurological exam: Alert, CN II-XII intact, Oriented X3. negative: Normal gait - Psychiatric Psychiatric exam: Normal affect, Normal mood - Skin Skin exam: Dry, Intact, Normal color, Warm Course Vital Signs 01/19/19 01/19/19 01/19/19 10:12 11:12 11:44 Temperature 100.1 F H Pulse Rate 109 H Pulse Rate [ 98 H 101 H Fuel Agent ] Respiratory 20 20 20 Rate Blood Pressure 80/57 Blood Pressure 75/51 88/58 [Right Arm] Pulse Ox 94 L 96 97 01/19/19 01/19/19 12:38 12:42 Temperature 101.1 F H Pulse Rate Pulse Rate [ 106 H Fuel Agent ] Respiratory 20 Rate Blood Pressure Blood Pressure 101/49 [Right Arm] Pulse Ox 99 Medical Decision Making - Lab Data Result diagrams: 01/19/19 10:40 01/19/19 10:40 Lab Results 01/19/19 01/19/19 01/19/19 Range/Units 10:40 10:40 10:40 WBC 24.8 H* (4.2-12.2) K/uL RBC 2.98 L (4.40-5.70) M/uL Hgb 9.8 L (14.0-18.0) gm/dl Hct 31.4 L (42.0-52.0) % MCV 105.4 H (81-97) fl MCH 32.8 (27-33) pg MCHC 31.2 L (32-36) g/dl RDW 15.2 H (11.5-14.5) % Plt Count 105 L (130-400) K/uL MPV 12.8 H (7.4-10.4) fl Neutrophils % 26.0 L (47-80) % Band Neutrophils % 8.0 H (0-5) % Eosinophils % Not Reportable Basophils % Not Reportable Absolute Neutrophils 8.27 Lymphocytes 4.0 L (16-45) % Monocytes 62.0 H (0-9) % Basophils 0.0 (0-6) % Eosinophil Count 0.0 (0-6) % Sodium 133 L (136-145) mmol/L Potassium 3.6 (3.4-4.5) mmol/L Chloride 95 L (98-107) mmol/L Carbon Dioxide 25.0 (22-29) mmol/L Anion Gap 13.0 (7-16) BUN 20 (8-23) mg/dL Creatinine 0.7 (0.7-1.2) mg/dL Estimated GFR > 60 mL/min Random Glucose 100 (74-109) mg/dL Lactic Acid Cancelled Calcium 8.5 L (8.8-10.2) mg/dL Total Bilirubin 0.70 (0.2-1.0) mg/dL AST 14 (10.0-50.0) U/L ALT < 5 (<41) U/L Alkaline Phosphatase 62 (40-129) U/L Creatine Kinase 45 (39-308) U/L Troponin T < 0.010 Cancelled (0-0.010) ng/mL NT-Pro-B Natriuret Pep 3079.00 H (<125) pg/mL Total Protein 7.2 (6.6-8.7) g/dL Albumin 3.7 L (4.0-5.0) g/dL Globulin 3.5 (1.4-4.8) gm/dL Albumin/Globulin Ratio 1.1 (1.1-1.8) Urine Color Urine Appearance Urine pH (5.0-8.0) Ur Specific [place] (1.002-1.030) Urine Protein (NEGATIVE) Urine Glucose (UA) (NEGATIVE) Urine Ketones (NEGATIVE) Urine Blood (NEGATIVE) Urine Nitrite (NEGATIVE) Urine Bilirubin (NEGATIVE) Urine Urobilinogen (0.20 - 1.00) E.U./dL Ur Leukocyte Esterase (NEGATIVE) Influenza Type A Ag (NEGATIVE) Influenza Type B Ag (NEGATIVE) 01/19/19 01/19/19 01/19/19 Range/Units 10:40 10:40 12:35 WBC (4.2-12.2) K/uL RBC (4.40-5.70) M/uL Hgb (14.0-18.0) gm/dl Hct (42.0-52.0) % MCV (81-97) fl MCH (27-33) pg MCHC (32-36) g/dl RDW (11.5-14.5) % Plt Count (130-400) K/uL MPV (7.4-10.4) fl Neutrophils % (47-80) % Band Neutrophils % (0-5) % Eosinophils % Basophils % Absolute Neutrophils Lymphocytes (16-45) % Monocytes (0-9) % Basophils (0-6) % Eosinophil Count (0-6) % Sodium (136-145) mmol/L Potassium (3.4-4.5) mmol/L Chloride (98-107) mmol/L Carbon Dioxide (22-29) mmol/L Anion Gap (7-16) BUN (8-23) mg/dL Creatinine (0.7-1.2) mg/dL Estimated GFR mL/min Random Glucose (74-109) mg/dL Lactic Acid 1.4 Calcium (8.8-10.2) mg/dL Total Bilirubin (0.2-1.0) mg/dL AST (10.0-50.0) U/L ALT (<41) U/L Alkaline Phosphatase (40-129) U/L Creatine Kinase (39-308) U/L Troponin T (0-0.010) ng/mL NT-Pro-B Natriuret Pep (<125) pg/mL Total Protein (6.6-8.7) g/dL Albumin (4.0-5.0) g/dL Globulin (1.4-4.8) gm/dL Albumin/Globulin Ratio (1.1-1.8) Urine Color Yellow Urine Appearance Clear Urine pH 5.5 (5.0-8.0) Ur Specific [place] 1.010 (1.002-1.030) Urine Protein Trace H (NEGATIVE) Urine Glucose (UA) Negative (NEGATIVE) Urine Ketones Negative (NEGATIVE) Urine Blood Negative (NEGATIVE) Urine Nitrite Negative (NEGATIVE) Urine Bilirubin Negative (NEGATIVE) Urine Urobilinogen 4.0 H (0.20 - 1.00) E.U./dL Ur Leukocyte Esterase Negative (NEGATIVE) Influenza Type A Ag Negative (NEGATIVE) Influenza Type B Ag Negative (NEGATIVE) Disposition Disposition: Admit Clinical Impression: Weakness Pneumonia Qualifiers: Pneumonia type: due to unspecified organism Laterality: left Lung location: lower lobe of lung Qualified Code(s): J18.1 - Lobar pneumonia, unspecified organism Hypotension Qualifiers: Hypotension type: hypotension due to hypovolemia Qualified Code(s): I95.89 - Other hypotension; E86.1 - Hypovolemia Disposition: Still a Patient at [facility] Decision to Admit: Admit from ER Decision to Admit Date: 01/19/19 Decision to Admit Time: 13:36 Condition: (1) Good Quality - Quality Measures Quality Measures: N/A - Blood Pressure Screening Does Patient Have Any of the Following: No Blood Pressure Classification: Normal BP Reading Systolic Measurement: 80 Diastolic Measurement: 57 Screening for High Blood Pressure: < Normal BP, F/U Not Required > [G8783]
[2019-01-19] MEDS ORDERED: 0.9 % SODIUM CHLORIDE 1000ML 1,000 ML IV PRN (14:09)
[2019-01-19] MEDS ORDERED: ACETAMINOPHEN 325 MG TAB PO PRN (14:09)
--- NOTE | 2019-01-19 14:20 | History & Physical ---
History of Present Illness - Date of Service Date of Service for History & Physical: 01/19/19 - History of Present Illness Admitting Diagnosis: pneumonia, weakness, hypotension History of Present Illness: Mr. Willams is a 73 y/o male who presents with 2 week history of progressive weakness accompanied by fevers and chills. The patient is a poor historian but says that he began to feel more weak and tired. He denies cough, chest congestion, shortness of breath or chest pain. He denies any recent ravel or sick contacts and says that he lives alone. On arrival to the ED the patient was noted to be weak, febrile and tachycardic. He is admitted to the general medical floor for sepsis due to pneumonia and started on IV antibiotics and fluids. ED course: - CXR; LLL patchy opacity. - WBCs: 24.8, Hgb 9.8, pro-BNP > 3000. - BP 80/57, T 100.1, Hr 109, RR 20, 94 on RA PCP: Unknown Travel Screening - Travel/Exposure Within Last 30 Days Have you traveled within the last 30 days?: No Review of Systems Constitutional: Reports: As per HPI, Fever, Weakness. Denies: Chills, Malaise, Night sweats, Weight change Eyes: Reports: As per HPI. Denies: Eye discharge, Eye pain, Photophobia, Vision change ENT: Reports: As per HPI. Denies: Congestion, Dental pain, Ear pain, Epistaxis, Hearing loss, Throat pain Respiratory: Reports: As per HPI, Cough. Denies: Dyspnea, Hemoptysis, Stridor, Wheezes Cardiovascular: Reports: As per HPI. Denies: Arrhythmia, Chest pain, Dyspnea on exertion, Edema, Murmurs, Orthopnea, Palpitations, Paroxysmal nocturnal dyspnea, Rheumatic Fever, Syncope Endocrine: Reports: As per HPI. Denies: Fatigue, Heat or cold intolerance, Polydipsia, Polyuria Gastrointestinal: Reports: As per HPI. Denies: Abdominal pain, Constipation, Diarrhea, Hematemesis, Hematochezia, Melena, Nausea, Vomiting Genitourinary: Reports: As per HPI. Denies: Dysuria, Frequency, Hematuria, Incontinence, Retention, Testicular pain, Testicular mass, Urgency Musculoskeletal: Reports: As per HPI. Denies: Arthralgia, Back pain, Gout, Joint swelling, Myalgia, Neck pain Skin: Reports: As per HPI. Denies: Bruising, Change in color, Change in hair/nails, Lesions, Pruritus, Rash Neurological: Reports: As per HPI, Abnormal gait, Tremors, Weakness. Denies: Confusion, Headache, Numbness, Paresthesias, Seizure, Tingling, Vertigo Psychiatric: Reports: As per HPI. Denies: Anxiety, Auditory hallucinations, Depression, Homicidal thoughts, Suicidal thoughts, Visual hallucinations Hematological/Lymphatic: Reports: As per HPI. Denies: Anemia, Blood Clots, Easy bleeding, Easy bruising, Swollen glands Past Medical History - SOCIAL HISTORY Smoking Status: Never smoker Alcohol Use: None Drug Use: None - RESPIRATORY Hx Respiratory Disorders: No - CARDIOVASCULAR Hx Cardio Disorders: No - NEURO Hx Neuro Disorders: Yes Hx Parkinson's Disease: Yes (TREMORS, DIFFICULTY READING) - GI Hx GI Disorders: No - Hx Genitourinary Disorders: No - ENDOCRINE Hx Endocrine Disorders: No Hx Diabetes: No Hx Thyroid Disease: No - MUSCULOSKELETAL Hx Musculoskeletal Disorders: No - PSYCH Hx Psych Problems: Yes Hx Anxiety: Yes Hx Depression: Yes - HEMATOLOGY/ONCOLOGY Hx Hematology/Oncology Disorders: No Family Medical History Any Significant Family History?: No H&P Meds/Allergies - Allergies Allergies: Allergies Allergy/AdvReac Type Severity Reaction Status Date / Time Penicillins Allergy SWELLING Verified 01/19/19 10:17 (GENERAL) - Home Medications Previous Rx's Medication Instructions Recorded Acetaminophen [Tylenol 325Mg] 650 mg PO Q6H PRN tablet 10/04/18 Bifidobacterium Infantis [Align] 4 mg PO DAILY #9 capsule 10/04/18 Citalopram Hydrobromide [Celexa] 20 mg PO DAILY tablet 10/04/18 - Active Medications Active Medications: Current Medications Acetaminophen (Tylenol 325mg) 650 mg PO Q6H PRN PRN Reason: PAIN - MILD(1-4)/FEVER Carbidopa/Levodopa (Sinemet) 1 each PO TID CHAYO Citalopram Hydrobromide (Celexa) 20 mg PO DAILY CHAYO Levofloxacin/Dextrose (Levaquin 750mg Ivpb) 750 mg in 150 mls @ 125 mls/hr IVPB Q24H CHAYO Stop: 01/24/19 14:10 Sodium Chloride () 1,000 mls @ 100 mls/hr IV .Q10H PRN PRN Reason: LARGE VOLUME IV Methylprednisolone Sodium Succinate (Solu-Medrol) 60 mg IVP DAILY CHAYO Physical Exam - Vital Signs Vital Signs: Vital Signs - Last 24 Hrs Temp Pulse Pulse Resp BP BP Pulse Ox 01/19/19 13:27 120 H 24 111/63 94 L 01/19/19 12:42 106 H 20 101/49 99 01/19/19 12:38 101.1 F H 01/19/19 11:44 101 H 20 88/58 97 01/19/19 11:12 98 H 20 75/51 96 01/19/19 10:12 100.1 F H 109 H 20 80/57 94 L - General General Appearance: Alert, Oriented x3, Cooperative, Mild distress Limitations: No limitations - Head Head exam: Normal inspection - Eye Eye exam: Normal appearance, PERRL, EOMI Pupils: Normal accommodation - ENT ENT exam: Normal exam, Mucous membranes moist, Normal external ear exam, Normal orophraynx, TM's normal bilaterally Ear exam: Normal external inspection. negative: External canal tenderness Nasal Exam: Normal inspection. negative: Discharge, Sinus tenderness Mouth exam: Normal external inspection, Tongue normal Teeth exam: Normal inspection. negative: Dental caries Throat exam: Normal inspection. negative: Tonsillar erythema, Tonsillar exudate - Neck Neck exam: Normal inspection, Full ROM. negative: Tenderness - Respiratory Respiratory exam: Normal lung sounds bilaterally. negative: Respiratory distress - Cardiovascular Cardiovascular Exam: Regular rate, Normal rhythm, Normal heart sounds Peripheral Pulses: 3+: Radial (R), Radial (L), Dorsalis Pedis (R), Dorsalis Pedis (L) - GI/Abdominal GI/Abdominal exam: Soft, Normal bowel sounds. negative: Tenderness - Rectal Rectal exam: Deferred - exam: Deferred - Extremities Extremities exam: Normal inspection, Full ROM, Normal capillary refill. negative: Tenderness - Back Back exam: Reports: Normal inspection, Full ROM. Denies: Muscle spasm, Rash noted, Tenderness - Neurological Neurological exam: Alert, CN II-XII intact, Oriented X3, Other (resting tremor ). negative: Normal gait - Psychiatric Psychiatric exam: Normal affect, Normal mood - Skin Skin exam: Dry, Intact, Normal color, Warm Results - Labs Result Diagrams: 01/19/19 10:40 01/19/19 10:40 Labs Last 24 Hours: Laboratory Results - last 24 hr 01/19/19 01/19/19 01/19/19 10:40 10:40 10:40 WBC 24.8 H* RBC 2.98 L Hgb 9.8 L Hct 31.4 L MCV 105.4 H MCH 32.8 MCHC 31.2 L RDW 15.2 H Plt Count 105 L MPV 12.8 H Neutrophils % 26.0 L Band Neutrophils % 8.0 H Eosinophils % Not Reportable Basophils % Not Reportable Absolute Neutrophils 8.27 Lymphocytes 4.0 L Monocytes 62.0 H Basophils 0.0 Eosinophil Count 0.0 Sodium 133 L Potassium 3.6 Chloride 95 L Carbon Dioxide 25.0 Anion Gap 13.0 BUN 20 Creatinine 0.7 Estimated GFR > 60 Random Glucose 100 Lactic Acid Cancelled Calcium 8.5 L Total Bilirubin 0.70 AST 14 ALT < 5 Alkaline Phosphatase 62 Creatine Kinase 45 Troponin T < 0.010 Cancelled NT-Pro-B Natriuret Pep 3079.00 H Total Protein 7.2 Albumin 3.7 L Globulin 3.5 Albumin/Globulin Ratio 1.1 Urine Color Urine Appearance Urine pH Ur Specific Lohman Urine Protein Urine Glucose (UA) Urine Ketones Urine Blood Urine Nitrite Urine Bilirubin Urine Urobilinogen Ur Leukocyte Esterase Influenza Type A Ag Influenza Type B Ag 01/19/19 01/19/19 01/19/19 10:40 10:40 12:35 WBC RBC Hgb Hct MCV MCH MCHC RDW Plt Count MPV Neutrophils % Band Neutrophils % Eosinophils % Basophils % Absolute Neutrophils Lymphocytes Monocytes Basophils Eosinophil Count Sodium Potassium Chloride Carbon Dioxide Anion Gap BUN Creatinine Estimated GFR Random Glucose Lactic Acid 1.4 Calcium Total Bilirubin AST ALT Alkaline Phosphatase Creatine Kinase Troponin T NT-Pro-B Natriuret Pep Total Protein Albumin Globulin Albumin/Globulin Ratio Urine Color Yellow Urine Appearance Clear Urine pH 5.5 Ur Specific Lohman 1.010 Urine Protein Trace H Urine Glucose (UA) Negative Urine Ketones Negative Urine Blood Negative Urine Nitrite Negative Urine Bilirubin Negative Urine Urobilinogen 4.0 H Ur Leukocyte Esterase Negative Influenza Type A Ag Negative Influenza Type B Ag Negative VTE H&P Assessment - Risk for VTE Risk for VTE: Yes Risk Level: High Risk Assessment Date: 01/19/19 Risk Assessment Time: 14:26 VTE Orders Placed or Will Be Placed: Yes Plan - Inpatient Certification Inpatient Certification: Admit to inpatient care: Based on my medical assessment, after consideration of patient's risk factors (age, co-morbidities and patient presenting symptoms and acuity), I expect that this patient will remain in the hospital greater than or equal to two midnights and that the services needed warrant inpatient care because: Patient Risk Factors: Pneumonia, Parkinson's Estimated length of stay: 72 The patient may reasonably be expected to be d ischarged or transferred to a hospital within 96 hours after admission to [facility]. I certify that my determination is in accordance with my understanding of Medicare requirements for reasonable and necessary inpatient services. 01/19/19 14:15 - Detailed Diagnosis and Plan (1) Sepsis Current Visit: Yes Status: Acute Base Code: A41.9 - SEPSIS, UNSPECIFIED ORGANISM Comment: 01/20/19: - Tachycardia, elevated WBCs, hypotensive. - Fluid resuscitation: bolused 1 liter 0.9% Nacl, and cont with 100mL/hr. - Blood cultures pending, repeat CBC w/ diff. Continuous personnel monitor. - Levaquin 750mg Q24H IV, Tylenol 650mg Q6H PRN fever/pain. (2) Pneumonia involving left lung Current Visit: Yes Status: Acute Base Code: J18.9 - PNEUMONIA, UNSPECIFIED ORGANISM Comment: 01/19/19: - Patchy opacities of the left lung base. - Recent hospital admission w/ qualification for HCAP. - Started on Levaquin 750mg Q24H - Oxygen to keep sats > 92% (3) Sepsis associated hypotension Current Visit: Yes Status: Acute Base Code: A41.9 - SEPSIS, UNSPECIFIED ORGANISM; I95.9 - HYPOTENSION, UNSPECIFIED Comment: 01/19/19: - Hypotensive on admission: 75/51,88/58,101/49,111/63 - Bolused 1 liter IVF in ED. - To continue on IVF 0.9% Nacl @ 100mL.hr. (4) Parkinson's disease Current Visit: Yes Status: Acute Base Code: G20 - PARKINSON'S DISEASE Comment: 01/20/19: - Resume Sinimet. Home medications to be brought in by famly member. (5) DVT prophylaxis Current Visit: No Status: Acute Base Code: [id number] - Comment: 01/19/19: - Moderate risk due to age, hospitalization, and illness. - Lovenox 40mg sq QD. (6) DNR (do not resuscitate) Current Visit: Yes Status: Acute Base Code: Z66 - DO NOT RESUSCITATE Comment: 01/19/19: - Discussed code status with patient and he wishes to be DNR. - Disposition Admitted for sepsis 2/2 pneumonia. Pt's [employer] Program Coordinator is his DPOA. We will see about documentation regarding this.
[2019-01-19] MEDS ORDERED: ENOXAPARIN 40 MG/0.4 ML SYR SC SCH (14:30)
[2019-01-19] MEDS ORDERED: CARBIDOPA/LEVODOPA 25MG/100MG TABLET PO SCH (15:45)
[2019-01-19 19:31] LABS: ABSOLUTE NEUTROPHIL COUNT 11.64; HEMATOCRIT 24.8 % (42.0-52.0); HEMOGLOBIN 7.7 gm/dl (14.0-18.0); MEAN CELL VOLUME 106.9 fl (81-97); MEAN PLATELET VOLUME 12.5 fl (7.4-10.4); PLATELET COUNT 88 K/uL (130-400); RED BLOOD COUNT 2.32 M/uL (4.40-5.70); RED CELL DISTRIBUTION WIDTH 15.2 % (11.5-14.5)
[2019-01-19 19:34] LABS: MEAN CORPUSCULAR HEMOGLOBIN 33.1 pg (27-33)
[2019-01-19 19:38] LABS: WHITE BLOOD COUNT W/O DIFF 27.1 K/uL (4.2-12.2)
--- NOTE | 2019-01-19 20:00 | Discharge Summary ---
Providers Discharge Summary Date: 01/19/19 Date of admission: 01/19/19 14:01 Attending physician: ROXANN LAMAS Primary care physician: DOLLY COLLINS M.D. Physical Exam - Vital Signs Vital Signs: Vital Signs - Last 24 Hrs Temp Pulse Pulse Pulse Resp BP BP 01/19/19 18:34 97.8 F 93 H 18 64/33 01/19/19 15:10 20 01/19/19 14:27 100.6 F H 123 H 18 85/61 01/19/19 14:20 96.8 F L 117 H 18 83/51 01/19/19 13:27 120 H 24 111/63 01/19/19 12:42 106 H 20 101/49 01/19/19 12:38 101.1 F H 01/19/19 11:44 101 H 20 88/58 01/19/19 11:12 98 H 20 75/51 01/19/19 10:12 100.1 F H 109 H 20 80/57 Pulse Ox 01/19/19 18:34 99 01/19/19 15:10 01/19/19 14:27 97 01/19/19 14:20 98 01/19/19 13:27 94 L 01/19/19 12:42 99 01/19/19 12:38 01/19/19 11:44 97 01/19/19 11:12 96 01/19/19 10:12 94 L - General General Appearance: Alert, Oriented x3, Cooperative, Mild distress Limitations: No limitations - Head Head exam: Normal inspection - Eye Eye exam: Normal appearance, PERRL, EOMI Pupils: Normal accommodation - ENT ENT exam: Normal exam, Mucous membranes moist, Normal external ear exam, Normal orophraynx, TM's normal bilaterally Ear exam: Normal external inspection. negative: External canal tenderness Nasal Exam: Normal inspection. negative: Discharge, Sinus tenderness Mouth exam: Normal external inspection, Tongue normal Teeth exam: Normal inspection. negative: Dental caries Throat exam: Normal inspection. negative: Tonsillar erythema, Tonsillar exudate - Neck Neck exam: Normal inspection, Full ROM. negative: Tenderness - Respiratory Respiratory exam: Normal lung sounds bilaterally. negative: Respiratory distress - Cardiovascular Cardiovascular Exam: Regular rate, Normal rhythm, Normal heart sounds Peripheral Pulses: 3+: Radial (R), Radial (L), Dorsalis Pedis (R), Dorsalis Pedi s (L) - GI/Abdominal GI/Abdominal exam: Soft, Normal bowel sounds. negative: Tenderness - Rectal Rectal exam: Deferred - exam: Deferred - Extremities Extremities exam: Normal inspection, Full ROM, Normal capillary refill. negative: Tenderness - Back Back exam: Reports: Normal inspection, Full ROM. Denies: Muscle spasm, Rash noted, Tenderness - Neurological Neurological exam: Alert, CN II-XII intact, Oriented X3, Other (resting tremor ). negative: Normal gait - Psychiatric Psychiatric exam: Normal affect, Normal mood - Skin Skin exam: Dry, Intact, Normal color, Warm Hospitalization - Hospitalization Admission Diagnosis: pneumonia, weakness, hypotension - Problem List/Discharge Diagnosis (1) Sepsis Current Visit: Yes Status: Acute Base Code: A41.9 - SEPSIS, UNSPECIFIED ORGANISM Comment: 01/20/19: - Tachycardia, elevated WBCs, hypotensive. - Fluid resuscitation: bolused 1 liter 0.9% Nacl, and cont with 100mL/hr. - Blood cultures pending, repeat CBC w/ diff. Continuous hall monitor. - Levaquin 750mg Q24H IV, Tylenol 650mg Q6H PRN fever/pain. (2) Pneumonia involving left lung Current Visit: Yes Status: Acute Base Code: J18.9 - PNEUMONIA, UNSPECIFIED ORGANISM Comment: 01/19/19: - Patchy opacities of the left lung base. - Recent hospital admission w/ qualification for HCAP. - Started on Levaquin 750mg Q24H - Oxygen to keep sats > 92% (3) Sepsis associated hypotension Current Visit: Yes Status: Acute Base Code: A41.9 - SEPSIS, UNSPECIFIED ORGANISM; I95.9 - HYPOTENSION, UNSPECIFIED Comment: 01/19/19: - Hypotensive on admission: 75/51,88/58,101/49,111/63 - Bolused 1 liter IVF in ED. - To continue on IVF 0.9% Nacl @ 100mL.hr. (4) Parkinson's disease Current Visit: Yes Status: Acute Base Code: G20 - PARKINSON'S DISEASE Comment: 01/20/19: - Resume Sinimet. Home medications to be brought in by famly member. (5) DVT prophylaxis Current Visit: No Status: Acute Base Code: [id number] - Comment: 01/19/19: - Moderate risk due to age, hospitalization, and illness. - Lovenox 40mg sq QD. (6) DNR (do not resuscitate) Current Visit: Yes Status: Acute Base Code: Z66 - DO NOT RESUSCITATE Comment: 01/19/19: - Discussed code status with patient and he wishes to be DNR. - Disposition Admitted for sepsis 2/2 pneumonia. 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 We will see about documentation regarding this. - Hospitalization Course Hospital Course: Mr. Willams is a 73 y/o male who presents with 2 week history of progressive weakness accompanied by fevers and chills. The patient is a poor historian but says that he began to feel more weak and tired. He denies cough, chest congestion, shortness of breath or chest pain. He denies any recent ravel or sick contacts and says that he lives alone. On arrival to the ED the patient was noted to be weak, febrile and tachycardic. He is admitted to the general medical floor for sepsis due to pneumonia and started on IV antibiotics and fluids. ED course: - CXR; LLL patchy opacity. - WBCs: 24.8, Hgb 9.8, pro-BNP > 3000., Influenza A/B negative. Blood cultures pending. - BP 80/57, T 100.1, Hr 109, RR 20, 94 on RA Re-assessement 6:35 pm: Pt's BP has dropped to 53/32 --> 64/43. Pt complains of blurring of vision. Bolused an additional 1 liter 0.9% Nacl and BP reads 61/35. Stat CBC w/diff WBC: 27.1, Hgb 7.7. Patient still complains of blurring vision but is able to respond appropriately. Discussed with Dr. Ugalde at [facility] and he has agreed to transfer the patient to the MICU. PCP: Unknown Procedures: Imaging and X-Rays 01/19/19 10:36 CHEST 1 VIEW [RAD] Stat Cardiology Procedures 01/19/19 10:38 EKG NOW 01/19/19 14:09 Certified Vehicle Fire Investigator .Continuous Abnormal Labs: Abnormal Lab Results 01/19/19 01/19/19 01/19/19 Range/Units 10:40 10:40 12:35 WBC 24.8 H* (4.2-12.2) K/uL RBC 2.98 L (4.40-5.70) M/uL Hgb 9.8 L (14.0-18.0) gm/dl Hct 31.4 L (42.0-52.0) % MCV 105.4 H (81-97) fl MCH (27-33) pg MCHC 31.2 L (32-36) g/dl RDW 15.2 H (11.5-14.5) % Plt Count 105 L (130-400) K/uL MPV 12.8 H (7.4-10.4) fl Neutrophils % 26.0 L (47-80) % Band Neutrophils % 8.0 H (0-5) % Lymphocytes 4.0 L (16-45) % Monocytes 62.0 H (0-9) % Sodium 133 L (136-145) mmol/L Chloride 95 L (98-107) mmol/L Calcium 8.5 L (8.8-10.2) mg/dL NT-Pro-B Natriuret Pep 3079.00 H (<125) pg/mL Albumin 3.7 L (4.0-5.0) g/dL Urine Protein Trace H (NEGATIVE) Urine Urobilinogen 4.0 H (0.20 - 1.00) E.U./dL 01/19/19 Range/Units 19:30 WBC 27.1 H* (4.2-12.2) K/uL RBC 2.32 L (4.40-5.70) M/uL Hgb 7.7 L (14.0-18.0) gm/dl Hct 24.8 L (42.0-52.0) % MCV 106.9 H (81-97) fl MCH 33.1 H (27-33) pg MCHC 31.0 L (32-36) g/dl RDW 15.2 H (11.5-14.5) % Plt Count 88 L (130-400) K/uL MPV 12.5 H (7.4-10.4) fl Neutrophils % 31.0 L (47-80) % Band Neutrophils % 12.0 H (0-5) % Lymphocytes 57.0 H (16-45) % Monocytes (0-9) % Sodium (136-145) mmol/L Chloride (98-107) mmol/L Calcium (8.8-10.2) mg/dL NT-Pro-B Natriuret Pep (<125) pg/mL Albumin (4.0-5.0) g/dL Urine Protein (NEGATIVE) Urine Urobilinogen (0.20 - 1.00) E.U./dL Condition at Discharge: (1) Good Discharge Medications - Discharge Medications Home Medications: Ambulatory Orders Carbidopa/Levodopa [Sinemet 25-100 mg Tablet] 1 each PO TID 10/01/18 [Last Taken 09/30/18 21:00 25-100 mg] Acetaminophen [Tylenol 325Mg] 650 mg PO Q6H PRN tablet 10/04/18 [Last Taken Unknown] Bifidobacterium Infantis [Align] 4 mg PO DAILY #9 capsule 10/04/18 [Last Taken Unknown] Citalopram Hydrobromide [Celexa] 20 mg PO DAILY tablet 10/04/18 [Last Taken Unknown] Discharge Plan - Discharge Instructions Activity at Discharge: Other Diet at Discharge: Regular Diet Quality Measures - Quality Measures Quality Measures: Advance Directives, Documentation of Current Medications in Medical Record, Elder Maltreatment Screen and Follow-Up Plan, Screening for High Blood Pressure and F/U Documented - Current Medications Quality Measure: Measure #130: Documentation of Current Medications Documentation of Current Medications: <Current Medications Documented/Reviewed> [W5504] - Blood Pressure Screening Quality Measure: Screening for High Blood Pressure and Follow-Up Documented Does Patient Have Any of the Following: No Blood Pressure Classification: Normal BP Reading Systolic Measurement: 80 Diastolic Measurement: 57 Screening for High Blood Pressure: < Normal BP, F/U Not Required > [L8003] - Advance Directives Quality Measure: Measure #47: Care Plan Advance Directives Established: No Advance Directives Information Provided To Patient: No Advance Directives on File: No Living Will: Yes Power of Grain Combiner: Yes Power of Grain Combiner Name: Ken Barajas Advance Care Planning: <Care Plan/Decision Maker Not Decided; Discussed & Documented> [5330F] - Elder Abuse Suspicion Index Screening: Elder Abuse Suspicion Index Screening Rely on people for bathing, dressing, shopping, banking, etc: No Prevented from getting food, clothes, medication, etc: No Made to feel shamed or threatened by someone: No Forced to sign papers or use money against will: No Feel afraid, touched in ways not wanted or hurt physically: No Poor eye contact, withdrawn, malnourished, cuts or bruises: No Screening Result: Negative result EASI Reference Information: Shari DIGGS, Aurora Davila, Bart Rasmussen, Jose Alejandro Valencia.Development and validation of a tool to assist physicians identification of elder abuse: The Elder Abuse Suspicion Index (EASI ). Journal of Elder Abuse and Neglect, 2008; 20 (3): 276-300. - Elder Maltreatment Screen Quality Measures: Elder Maltreatment Screen and Follow-Up Plan Elder Maltreatment Screen: <Negative, No Follow-Up Plan Required> [G0512]
--- NOTE | 2019-01-20 07:28 | RADIOLOGY REPORT ---
EXAM: CHEST, SINGLE VIEW HISTORY: FEVER, LEUKOCYTOSIS. TECHNIQUE: Portable frontal view of the chest was obtained. Comparison: Chest radiograph 01/27/18. FINDINGS: The cardiac silhouette is within normal size limits. The thoracic aorta is calcified and mildly tortuous. Patchy opacities in the left lung base. No significant pleural fluid collection. No visible pneumothorax. IMPRESSION: PATCHY LEFT BASILAR OPACITIES SUSPICIOUS FOR PNEUMONIA. JOB NUMBER: [id number] MTDD
[2019-01-20] MEDS ORDERED: METHYLPREDNISOLONE PF 125MG/VIAL IVP SCH (10:00)
[2019-01-20] MEDS ORDERED: BIFIDOBACTERIUM INFANTIS 4 MG CAPSULE PO SCH (10:00)
[2019-01-20] MEDS ORDERED: CITALOPRAM 20 MG TABLET PO SCH (10:00)
[2019-01-20] MEDS ORDERED: LEVOFLOXACIN/D5W 750 MG/150 ML BAG IVPB SCH (12:00)
== END 2019-01-19 20:50 | disposition short-term general hospital (02) ==
LOC: ER 10:03 → MEDSURG 14:01 → INTOOBSV 14:01
PROVIDERS: ADMIT Internal Medicine; ATTEND Internal Medicine
DX: J18.1 Lobar pneumonia, unspecified organism (principal); A41.9 Sepsis, unspecified organism; R05 Cough; E86.1 Hypovolemia; I95.89 Other hypotension; G20 Parkinson's disease; Z66 Do not resuscitate
CPT/HCPCS: 71045; 80053; 81003; 82550; 83605; 83880; 84484; 85027; 87400; 93005; 93010; 99236; 99285; J1956; J7030